=== PATIENT | female | born 1990 | race Hispanic/Latino ===

== ENCOUNTER 2019-02-10 06:41 | Observation (INO) | payer MEDICAID ==
[~2019-02-10] VITALS: Ht 162.6 cm; Wt 98.9 kg
[2019-02-10 07:13] LABS: APPEARANCE,URINE CLEAR (CLEAR); BILIRUBIN,URINE NEGATIVE (NEGATIVE); COLOR,URINE YELLOW (YELLOW); GLUCOSE, URINE (UA) NEGATIVE (NEGATIVE); KETONES,URINE 5 mg/dL (NEGATIVE); LEUKOCYTE ESTERASE ,URINE NEGATIVE (NEGATIVE); NITRATE,URINE NEGATIVE (NEGATIVE); OCCULT BLOOD,URINE NEGATIVE (NEGATIVE); PROTEIN,URINE 30 mg/dL (NEGATIVE); UROBILINOGEN,URINE 0.2 mg/dL (0.2-1.0)
[2019-02-10 07:44] LABS: BACTERIA,URINE Rare /HPF (None Seen); RBC,URINE 0-1 /HPF (0-1); SQUAMOUS EPITHELIAL CELL,UR Moderate /HPF (0-2); WBC,URINE 0-1 /HPF (0-1)
[2019-02-10 10:26] VITALS: BP 110/72
[2019-02-15] MEDS ORDERED: FERR325T22 PO (21:14)
[2019-02-15] MEDS ORDERED: PREN1TAB80 PO (21:14)
== END 2019-02-10 10:30 | disposition home or self-care (01) ==
LOC: EDH 06:41 → UNDOADMOB 06:53 → LDH 06:53
DX: O62.9 Abnormality of forces of labor, unspecified (principal); O26.893 Other specified pregnancy related conditions, third trimester; R10.9 Unspecified abdominal pain; Z3A.38 38 weeks gestation of pregnancy
CPT/HCPCS: 81001; 99284; G0378 ×3